=== PATIENT | female | born 1950 | race Caucasian/White ===

== ENCOUNTER 2022-11-14 14:26 | Emergency (ER) | payer MEDICARE ==
[~2022-11-14] VITALS: Ht 167.7 cm; Wt 99.8 kg
[2022-11-14 14:54] LABS: BASOPHILS # (AUTO) 0.1 10^3/uL (0.0-0.1); BASOPHILS % (AUTO) 1 % (0-10); EOSINOPHILS # (AUTO) 0.4 10^3/uL (0.0-0.3); EOSINOPHILS % (AUTO) 6 % (0-10); HEMATOCRIT 41 % (35-52); HEMOGLOBIN 13.1 g/dL (11.5-16.0); LYMPHOCYTES # (AUTO) 1.9 X 10^3 (1.0-4.0); LYMPHOCYTES % (AUTO) 33 % (12-44); MEAN CORPUSCULAR HEMOGLOBIN 29 pg (25-34); MEAN CORPUSCULAR HGB CONC 32 g/dL (32-36); MEAN CORPUSCULAR VOLUME 90 fL (80-99); MEAN PLATELET VOLUME 10.5 fL (9.0-12.2); MONOCYTES # (AUTO) 0.4 X 10^3 (0.0-1.0); MONOCYTES % (AUTO) 7 % (0-12); NEUTROPHILS # (AUTO) 3.1 X 10^3 (1.8-7.8); NEUTROPHILS % (AUTO) 53 % (42-75); PLATELET COUNT 237 10^3/uL (130-400); WHITE BLOOD COUNT 5.9 10^3/uL (4.3-11.0)
--- NOTE | 2022-11-14 14:54 | ED Cardiac General ---
History of Present Illness General Chief Complaint: Cardiac/General Problems Stated Complaint: LOW BLOOD PRESSURE History of Present Illness Date Seen by Provider: Nov 14, 2022 Time Seen by Provider: 14:45 Initial Comments 72-year-old female sent in for evaluation of bradycardia. Patient was at pain management when they were evaluating her and found that she had marked bradycardia around 40 bpm. Patient reports that she sometimes occasionally gets dizzy. Patient does report that she is on 100 mg of metoprolol twice daily. She has been on it for about a year. She also reports that since starting her metoprolol she has had a 45 pound weight loss. She does not complain of chest pain or any other symptoms besides some occasional dizziness. Allergies and Home Medications Allergies Coded Allergies: No Known Allergies (Verified Allergy, Unknown, 11/14/22) Patient Home Medication List Home Medication List Reviewed: Yes Review of Systems Review of Systems Constitutional: see HPI EENTM: No Symptoms Reported Respiratory: No Symptoms Reported Cardiovascular: See HPI Gastrointestinal: No Symptoms Reported Genitourinary: No Symptoms Reported Musculoskeletal: no symptoms reported Skin: no symptoms reported Psychiatric/Neurological: No Symptoms Reported Physical Exam Vital Signs Vital Signs - First Documented 11/14/22 14:31 Temp 36.3 Pulse 51 Resp 16 B/P (MAP) 108/78 (88) O2 Delivery Room Air Capillary Refill : Height, Weight, BMI Height: '" Weight: lbs. oz. kg; BMI Method: General Appearance: No Apparent Distress Respiratory: Lungs Clear, Normal Breath Sounds Cardiovascular: Bradycardia Gastrointestinal: Non Tender, Soft Extremity: Normal Capillary Refill, Normal Range of Motion Neurologic/Psychiatric: Alert, Oriented x3, No Motor/Sensory Deficits, Normal Mood/Affect, sales trader II-XII Norm as Tested Skin: Normal Color, Warm/Dry Progress/Results/Core Measures Results/Orders Lab Results Laboratory Tests Test 11/14/22 14:45 Range/Units White Blood Count 5.9 4.3-11.0 10^3/uL Red Blood Count 4.57 3.80-5.11 10^6/uL Hemoglobin 13.1 11.5-16.0 g/dL Hematocrit 41 35-52 % Mean Corpuscular Volume 90 80-99 fL Mean Corpuscular Hemoglobin 29 25-34 pg Mean Corpuscular Hemoglobin Concent 32 32-36 g/dL Red Cell Distribution Width 15.6 H 10.0-14.5 % Platelet Count 237 130-400 10^3/uL Mean Platelet Volume 10.5 9.0-12.2 fL Immature Granulocyte % (Auto) 0 % Neutrophils (%) (Auto) 53 42-75 % Lymphocytes (%) (Auto) 33 12-44 % Monocytes (%) (Auto) 7 0-12 % Eosinophils (%) (Auto) 6 0-10 % Basophils (%) (Auto) 1 0-10 % Neutrophils # (Auto) 3.1 1.8-7.8 X 10^3 Lymphocytes # (Auto) 1.9 1.0-4.0 X 10^3 Monocytes # (Auto) 0.4 0.0-1.0 X 10^3 Eosinophils # (Auto) 0.4 H 0.0-0.3 10^3/uL Basophils # (Auto) 0.1 0.0-0.1 10^3/uL Immature Granulocyte # (Auto) 0.0 0.0-0.1 10^3/uL Sodium Level 138 135-145 MMOL/L Potassium Level 4.6 3.6-5.0 MMOL/L Chloride Level 105 98-107 MMOL/L Carbon Dioxide Level 24 21-32 MMOL/L Anion Gap 9 5-14 MMOL/L Blood Urea Nitrogen 22 H 7-18 MG/DL Creatinine 1.16 0.60-1.30 MG/DL Estimat Glomerular Filtration Rate 50 BUN/Creatinine Ratio 19 Glucose Level 94 70-105 MG/DL Calcium Level 9.4 8.5-10.1 MG/DL Corrected Calcium 9.3 8.5-10.1 MG/DL Magnesium Level 2.2 1.6-2.4 MG/DL Total Bilirubin 0.2 0.1-1.0 MG/DL Aspartate Amino Transf (AST/SGOT) 20 5-34 U/L Alanine Aminotransferase (ALT/SGPT) 19 0-55 U/L Alkaline Phosphatase 55 40-136 U/L Troponin I < 0.028 <0.028 NG/ML Total Protein 7.2 6.4-8.2 GM/DL Albumin 4.1 3.2-4.5 GM/DL My Orders Orders - CULLEN,MC L DO Cbc With Automated Diff (11/14/22 14:43) Comprehensive Metabolic Panel (11/14/22 14:43) Magnesium (11/14/22 14:43) Troponin I Whitley (11/14/22 14:43) Ekg Tracing (11/14/22 14:43) Monitor-Rhythm Ecg Trace Only (11/14/22 14:43) Vital Signs/I&O 11/14/22 14:31 Temp 36.3 Pulse 51 Resp 16 B/P (MAP) 108/78 (88) O2 Delivery Room Air Progress Progress Note : Progress Note Patient's diagnostic studies were ordered reviewed and interpreted by me. Patient's labs show no acute findings. Patient's symptoms are likely related to her metoprolol dosing in combination of her recent intentional 45 pound weight loss. Patient having asymptomatic bradycardia with her EKG showing sinus bradycardia with a ventricular rate 42 AL [address] changes but no acute ST or T wave changes. 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 She should return to the ER with any concerns. She is stable and discharged home Initial ECG Impression Date: Nov 14, 2022 Initial ECG Impression Time: 14:48 Initial ECG Rate: 42 Initial ECG Rhythm: S.Jayson Initial ECG Impression: Nonspecific Changes Comment no acute st changes Departure Impression Primary Impression: Bradycardia Disposition: 01 HOME, SELF-CARE Condition: Stable Departure-Patient Inst. Referrals: FEDERICA MARTINEZ MD (PCP/Family) Primary Care Physician Patient Instructions: Bradycardia Add. Discharge Instructions: Please decrease your metoprolol from 100 mg twice daily to 50 mg twice daily. Please call and make an appointment for ER follow-up with your typo machine operator next week if possible. Return to the ER with any concerns All discharge instructions reviewed with patient and/or family. Voiced understanding. MC CULLEN DO Nov 14, 2022 14:54
[2022-11-14 15:04] LABS: ALBUMIN 4.1 GM/DL (3.2-4.5); CHLORIDE 105 MMOL/L (98-107); POTASSIUM 4.6 MMOL/L (3.6-5.0); SODIUM 138 MMOL/L (135-145)
[2022-11-14 15:05] LABS: CALCIUM 9.4 MG/DL (8.5-10.1)
[2022-11-14 15:06] LABS: GLUCOSE 94 MG/DL (70-105)
[2022-11-14 15:07] LABS: TOTAL PROTEIN 7.2 GM/DL (6.4-8.2)
[2022-11-14 15:08] LABS: CARBON DIOXIDE 24 MMOL/L (21-32)
[2022-11-14 15:09] LABS: BILIRUBIN,TOTAL 0.2 MG/DL (0.1-1.0)
[2022-11-14 15:10] LABS: ALKALINE PHOSPHATASE 55 U/L (40-136); CREATININE SERUM 1.16 MG/DL (0.60-1.30); GFR ESTIMATED 50
[2022-11-14 15:11] LABS: BUN/CREATININE RATIO 19
[2022-11-14 15:13] LABS: ALANINE AMINOTRANSFERASE 19 U/L (0-55); MAGNESIUM 2.2 MG/DL (1.6-2.4)
[2022-11-14 15:38] VITALS: BP 145/84
[2022-11-16] MEDS ORDERED: NF-CIPDEC OT (15:48)
== END 2022-11-14 15:38 | disposition home or self-care (01) ==
LOC: ER 14:31
DX: R00.1 Bradycardia, unspecified (principal); Z79.899 Other long term (current) drug therapy
CPT/HCPCS: 36415; 80053; 83735; 84484; 85025; 93005